=== PATIENT | female | born 1955 | race African-American/Black ===

== ENCOUNTER 2023-04-19 12:11 | Emergency (ER) | payer MEDICARE, MEDICAID ==
[~2023-04-19] VITALS: Ht 165.1 cm; Wt 145.1 kg
[~2023-04-19 12:11] MED LIST: PHEN100C4 PO; PHEN100T PO; SERT50TA PO
[2023-04-19 12:29] VITALS: O2SAT 99
[2023-04-19] MEDS ORDERED: PHENOBARBITAL 60MG TABLET PO ONE (13:15)
[2023-04-19] MEDS ORDERED: PHENYTOIN SODIUM EXTENDED 100MG CAPSULE PO ONE (13:15)
[2023-04-19] MEDS ORDERED: PHENOBARBITAL 30 MG TABLET PO NR (14:00)
[2023-04-19] MEDS ORDERED: ACETAMINOPHEN 325MG TABLET PO NR (16:00)
[2023-04-19 16:59] VITALS: TEMP 97.9
[2023-04-19] MEDS ORDERED: PHEN100T PO (17:30)
[2023-04-19] MEDS ORDERED: PHEN100C4 PO (17:30)
[2023-04-19] MEDS ORDERED: PHEN97.22 MT (17:38)
[2023-04-19 18:27] VITALS: BP 142/61; PULSE 87; RESP 13
== END 2023-04-19 18:28 | disposition home or self-care (01) ==
LOC: ER 12:26
DX: G40.909 Epilepsy, unspecified, not intractable, without status epilepticus (principal); R89.2 Abnormal level of other drugs, medicaments and biological substances in specimens from other organs, systems and tissues; I10 Essential (primary) hypertension
CPT/HCPCS: 36415; 80185; 93005; 99284; 99285